=== PATIENT | male | born 1975 | race Caucasian/White ===

== ENCOUNTER 2023-08-28 12:59 | Emergency (ER) | payer OTHER, SELFPAY ==
--- NOTE | ~2023-08-28 | XR_ITS ---
EXAMINATION: XR chest 2V 08/28/2023 13:23 INDICATION: Nonproductive cough PROCEDURE: 2 view chest COMPARISON: No prior studies for comparison. FINDINGS: The lungs are clear. The cardiomediastinal silhouette is within normal limits. There are no pleural effusions. There is no pneumothorax suspected. IMPRESSION: 1: NO ACUTE CARDIOPULMONARY DISEASE. Reviewed, dictated and finalized at location B. [facility]
--- NOTE | 2023-08-28 13:03 | ED.URI ---
HPI - URI/Sore Throat General Chief Complaint: Upper Respiratory Infection Stated Complaint: Short of Breath, Cough, Earache Time Seen by Provider: 08/28/23 13:02 Source: patient Mode of arrival: ambulatory Limitations: no limitations History of Present Illness HPI Narrative: Doc is a 48-year-old male patient presenting to the clinic today with complaints of shortness of breath, cough, and left earache x2 days. He reports his primary care provider diagnosed him with bronchitis and treated in with an antibiotic and some steroids 2 weeks ago. He reports his symptoms improved however the past 2 days he has developed the above symptoms. States that he has been exposed to his DON is been coughing and sneezing at work MD elicited complaint: sore throat and nasal congestion Related Data Home Medications Medication Instructions Recorded Confirmed cyclobenzaprine 10 mg tablet 10 mg PO TID 08/28/23 08/28/23 duloxetine 60 mg capsule,delayed 60 mg PO DAILY 08/28/23 08/28/23 release ibuprofen 600 mg tablet 600 mg PO BID 08/28/23 08/28/23 meloxicam 15 mg tablet 15 mg PO DAILY 08/28/23 08/28/23 omeprazole 40 mg capsule,delayed 40 mg PO DAILY 08/28/23 08/28/23 release oxybutynin chloride 10 mg 10 mg PO DAILY 08/28/23 08/28/23 tablet,extended release 24 hr topiramate 100 mg tablet 100 mg PO DAILY 08/28/23 08/28/23 Allergies Allergy/AdvReac Type Severity Reaction Status Date / Time latex Allergy Severe Anaphylaxis Verified 08/28/23 13:29 Review of Systems Review of Systems: Pertinent positives per HPI. Patient denies any fever, chills, rash, headache, visual changes, dizziness, cough, shortness of breath, chest pain, palpitations, nausea, vomiting, diarrhea, constipation, abdominal pain, or any urinary issues. PMFSH Comments At the time of my signature, I reviewed and agree with the nursing past medical, surgical, social, and family history. There is no relevant family history pertinent to the patient complaint. Exam Narrative: General: Well-developed, well nourished, in no apparent distress Head: Normocephalic, atraumatic Eyes: Pupils equally round and reactive to light bilaterally, EOM intact, sclera and conjunctive clear, no discharge, lids normal Ears: TMs intact and congested, ear canals clear, no drainage, grossly hearing normal. Nose: Nares patent, there is discharge, no inflammation, no sinus tenderness. Mouth: Oral pharynx without lesions or masses, good dentition, MMM. Neck: Supple, trachea midline, no enlargement of anterior or posterior cervical nodes, no thyroid masses or goiter palpable. Cardio: Regular rate and rhythm, s1 and s2 normal, no murmur appreciated. Resp: Clear to auscultation bilaterally, no rhonchi, rales, wheezing or rubs Course Course Emergency Course: Portions of this record may have been created with voice recognition software. Level of Care: Express Care Visit Vital Signs Vital signs: Vital signs reviewed MDM - URI/Sore Throat MDM Narrative Medical decision making narrative: At the time of visit patient is resting comfortably on the exam table. Patient appears to be nontoxic. Supportive measures were discussed with the patient and they voiced understanding discharge instructions and agrees to treatment plan. Return precautions reviewed Differential Diagnosis Differential diagnosis: Likely upper respiratory infection, otitis media, sinusitis, viral infection, bronchitis, influenza, pharyngitis and other Discharge Plan Discharge Clinical Impression: Viral infection Upper respiratory infection Qualifiers: URI type: unspecified URI Qualified Code(s): J06.9 - Acute upper respiratory infection, unspecified Patient Disposition: Home, Self-Care Condition: Stable Instructions: Antibiotic Form, Upper Respiratory Infection (ED), Viral Syndrome (ED) Additional Instructions: COVID and influenza testing was negative. Take prescription medications only as pre
[2023-08-28 13:11] VITALS: BP 147/85; PULSE 95; RESP 16; TEMP 36.5; O2SAT 99
== END 2023-08-28 13:40 | disposition home or self-care (01) ==
PROVIDERS: Emergency Provider Nurse Practitioner Family; PCP Family Medicine
DX: B34.9 Viral infection, unspecified (principal); J06.9 Acute upper respiratory infection, unspecified; Z20.822 Contact with and (suspected) exposure to COVID-19; K21.9 Gastro-esophageal reflux disease without esophagitis; Z86.16 Personal history of COVID-19
CPT/HCPCS: 71046; 87426; 87804; 99213; G0463